=== PATIENT | female | born 1990 | race American Indian/Alaskan Native ===

== ENCOUNTER 2017-10-28 17:02 | Emergency (ER) | payer MEDICAID ==
[2017-10-28] MEDS ORDERED: NACL 0.9% 1000 ML 1,000 ML IV ONE (17:22)
[2017-10-28 18:25] LABS: Bilirubin,Urine NEG (Negative); Blood,Urine NEG (Negative); Color,Urine Yellow (Yellow); Protein,Urine <15 mg/dL mg/dL (Negative); Urobilinogen,Urine < 2.0 mg/dL (<2.0)
[2017-10-28 18:28] LABS: HCG Qualitative,Urine Negative (Negative)
[2017-10-28 18:31] LABS: Eosinophils # (Auto) 0.1 K/mm3 (0.0-0.4); Eosinophils % (Auto) 1.4 % (0.0-4.3); Hematocrit 37.6 % (30.3-42.9); Hemoglobin 12.9 gm/dl (10.1-14.3); Lymphocytes # (Auto) 2.3 K/mm3 (1.2-5.4); Lymphocytes % (Auto) 30.8 % (13.4-35.0); Mean Corpuscular HGB Conc 34 % (30-34); Mean Corpuscular Hemoglobin 32 pg (28-32); Mean Corpuscular Volume 92 fl (79-97); Monocytes # (Auto) 0.4 K/mm3 (0.0-0.8); Monocytes % (Auto) 4.8 % (0.0-7.3); Platelet Count 192 K/mm3 (140-440); Red Blood Count 4.08 M/mm3 (3.65-5.03); Red Cell Distribution Width 13.7 % (13.2-15.2)
[2017-10-28 18:39] LABS: Alanine Aminotransferase 15 units/L (7-56); Albumin 3.6 g/dL (3.9-5); BUN/Creatinine Ratio 20; Blood Urea Nitrogen 12 mg/dL (7-17); Hemolysis Index 5
--- NOTE | 2017-10-28 22:00 | Emergency Department Report ---
ED General Adult HPI - General Chief complaint: Abdominal Pain Stated complaint: BACK/ABD PAIN Time Seen by Provider: 10/28/17 21:12 Source: patient Mode of arrival: Ambulatory Limitations: No Limitations - History of Present Illness Initial comments: Patient presents to the emergency department with a two-week history of right lower quadrant abdominal pain that became worse today. The patient states she has a history of ovarian cysts that were located on the right side but this feels different. Patient denies any nausea, vomiting, diarrhea. Patient has no other complaints. -: Gradual Location: abdomen Radiation: non-radiation Severity scale (0 -10): 5 Quality: sharp Consistency: constant Improves with: none Worsens with: none Associated Symptoms: denies other symptoms Treatments Prior to Arrival: none - Related Data Previous Rx's Medication Instructions Recorded Last Taken Type Ibuprofen [Motrin] 800 mg PO Q8HR PRN #30 tablet 10/28/17 Unknown Rx traMADol [Ultram] 50 mg PO Q6HR PRN #24 tablet 10/28/17 Unknown Rx Allergies Allergy/AdvReac Type Severity Reaction Status Date / Time No Known Allergies Allergy Unverified 12/08/15 19:32 ED Review of Systems ROS: Stated complaint: BACK/ABD PAIN Other details as noted in HPI Comment: All other systems reviewed and negative Constitutional: denies: chills, fever Eyes: denies: eye pain, eye discharge, vision change ENT: denies: ear pain, throat pain Respiratory: denies: cough, shortness of breath, wheezing Cardiovascular: denies: chest pain, palpitations Endocrine: no symptoms reported Gastrointestinal: abdominal pain. denies: nausea, diarrhea Genitourinary: denies: urgency, dysuria, discharge Musculoskeletal: denies: back pain, joint swelling, arthralgia Skin: denies: rash, lesions Neurological: denies: headache, weakness, paresthesias Psychiatric: denies: anxiety, depression Hematological/Lymphatic: denies: easy bleeding, easy bruising ED Past Medical Hx - Past Medical History Hx Hypertension: Yes - Surgical History Additional Surgical History: x2 - Social History Smoking Status: Current Every Day Smoker Substance Use Type: None - Medications Home Medications: Home Medications Medication Instructions Recorded Confirmed Last Taken Type Ibuprofen [Motrin] 800 mg PO Q8HR PRN #30 tablet 10/28/17 Unknown Rx traMADol [Ultram] 50 mg PO Q6HR PRN #24 tablet 10/28/17 Unknown Rx ED Physical Exam - General Limitations: No Limitations General appearance: alert, in no apparent distress - Head Head exam: Present: atraumatic, normocephalic - Eye Eye exam: Present: normal appearance, PERRL, EOMI - ENT ENT exam: Present: mucous membranes moist - Neck Neck exam: Present: normal inspection - Respiratory Respiratory exam: Present: normal lung sounds bilaterally. Absent: respiratory distress, wheezes, rales - Cardiovascular Cardiovascular Exam: Present: regular rate, normal rhythm. Absent: systolic murmur, diastolic murmur, rubs, gallop - GI/Abdominal GI/Abdominal exam: Present: soft, tenderness (tenderness to palpation right lower quadrant), normal bowel sounds. Absent: distended - Rectal Rectal exam: Present: deferred - Extremities Exam Extremities exam: Present: normal inspection - Back Exam Back exam: Present: normal inspection - Neurological Exam Neurological exam: Present: alert, oriented X3, CN II-XII intact, normal gait. Absent: motor sensory deficit - Psychiatric Psychiatric exam: Present: normal affect, normal mood - Skin Skin exam: Present: warm, dry, intact, normal color. Absent: rash ED Course Vital Signs 10/28/17 10/28/17 10/28/17 17:18 21:40 22:37 Temperature 98.7 F 98.6 F Pulse Rate 81 76 Respiratory 16 18 18 Rate Blood Pressure 114/58 Blood Pressure 116/68 [Left] O2 Sat by Pulse 98 100 Oximetry ED Medical Decision Making - Lab Data Result diagrams: 10/28/17 17:50 10/28/17 17:50 - Medical Decision Making Discussed results with patient Critical care attestation.: If time is entered above; I have spent that time in minutes in the direct care of this critically ill patient, excluding procedure time. ED Disposition Clinical Impression: Abdominal pain Disposition: DC-01 TO HOME OR SELFCARE Is pt being admited?: No Does the pt Need Aspirin: No Condition: Fair Instructions: Abdominal Pain (ED) Additional Instructions: Return if worse Prescriptions: Ibuprofen [Motrin] 800 mg PO Q8HR PRN #30 tablet PRN Reason: Pain , Severe (7-10) traMADol [Ultram] 50 mg PO Q6HR PRN #24 tablet PRN Reason: Pain Referrals: PRIMARY CARE,MD [Primary Care Provider] - 3-5 Days Time of Disposition: 23:05
[2017-10-28 22:06] VITALS: BP 116/68
[2017-10-28] MEDS ORDERED: MORPHINE IM ONE (22:09)
[2017-10-28] MEDS ORDERED: ZOFRAN IM ONE (22:09)
--- NOTE | 2017-10-28 22:50 | Cat Scan Report ---
FINAL REPORT EXAM: CT ABDOMEN PELVIS WO CON HISTORY: rlq ab pain TECHNIQUE: Axial helical imaging through the abdomen and pelvis with sagittal and coronal reformatted images obtained. Type comparison: None FINDINGS: Visualization of fine detail is somewhat limited by artifact created by large body habitus and lack of contrast. The lung bases are without infiltrate, pneumothorax or pleural fluid collection. Heart appears to be enlarged. The liver, spleen, pancreas, kidneys and adrenal glands are unremarkable on this study without contrast. The gallbladder is mildly distended and unremarkable in appearance. The bowel is normal caliber. There is a moderate amount of stool in the ascending colon. The appendix is normal caliber. There is no evidence of pneumoperitoneum or free fluid. The abdominal aorta is normal caliber. There is no definite evidence of pathologic intra-abdominal adenopathy on this study without contrast. The urinary bladder is moderately distended and unremarkable in appearance. The uterus and adnexa are unremarkable in appearance. The bony structures are notable for spondylitic change of the lumbar spine. There is a small umbilical hernia that contains fat. IMPRESSION: 1. No evidence of an acute intra-abdominal process. 2. Moderate amount of stool in the ascending colon. 3. Spondylitic change lumbar spine. 4. The heart appears to be enlarged. 5. Small umbilical hernia contains fat.
== END 2017-10-28 23:28 | disposition home or self-care (01) ==
LOC: ED 17:02
DX: R10.31 Right lower quadrant pain (principal); I10 Essential (primary) hypertension; F17.200 Nicotine dependence, unspecified, uncomplicated
CPT/HCPCS: 36415; 74176; 80053; 81001; 81025; 85025; 96372; 99284; J2270; J2405

== ENCOUNTER 2019-02-20 08:39 | Emergency (ER) | payer SELFPAY ==
[2019-02-20 09:27] VITALS: BP 146/57
[2019-02-20 09:27] LABS: Basophils % (Auto) 0.5 % (0.0-1.8); Eosinophils # (Auto) 0.1 K/mm3 (0.0-0.4); Eosinophils % (Auto) 1.3 % (0.0-4.3); Hematocrit 41.5 % (30.3-42.9); Hemoglobin 13.8 gm/dl (10.1-14.3); Lymphocytes # (Auto) 1.7 K/mm3 (1.2-5.4); Mean Corpuscular HGB Conc 33 % (30-34); Mean Corpuscular Volume 93 fl (79-97); Monocytes # (Auto) 0.3 K/mm3 (0.0-0.8); Monocytes % (Auto) 5.1 % (0.0-7.3); Platelet Count 210 K/mm3 (140-440); Red Blood Count 4.48 M/mm3 (3.65-5.03); Red Cell Distribution Width 14.1 % (13.2-15.2)
[2019-02-20 09:44] LABS: Alanine Aminotransferase 23 units/L (7-56); Albumin 3.8 g/dL (3.9-5); BUN/Creatinine Ratio 15; Blood Urea Nitrogen 9 mg/dL (7-17); Calcium 9.6 mg/dL (8.4-10.2); Hemolysis Index 14
--- NOTE | 2019-02-20 09:44 | Emergency Department Report ---
HPI - General Chief Complaint: Abdominal Pain Time Seen by Provider: 02/20/19 09:25 - HPI HPI: 28-year-old female presents to the emergency department with complaint of lower abdominal and right sided pelvic pain after having a fall 2 days ago. She says that she fell directly on that right side. The pain worsens when she is walking or moving around. She also has developed some mild vaginal spotting despite the fact that she had her menstrual cycle and 5 days ago. She has a past medical history of hypertension. She has not taken anything for her symptoms prior to arrival today. ED Past Medical Hx - Past Medical History Previous Medical History?: Yes Hx Hypertension: Yes - Surgical History Past Surgical History?: Yes Additional Surgical History: x2 - Social History Smoking Status: Never Smoker Substance Use Type: Alcohol - Medications Home Medications: Home Medications Medication Instructions Recorded Confirmed Last Taken Type traMADoL [Ultram] 50 mg PO Q6HR PRN #24 tablet 10/28/17 Unknown Rx Ibuprofen [Motrin 800 MG tab] 800 mg PO Q8HR PRN #20 tablet 02/20/19 Unknown Rx ED Review of Systems ROS: Stated complaint: ABD PAIN/SPOTTING BLOOD Other details as noted in HPI Comment: All other systems reviewed and negative Constitutional: denies: chills, fever Gastrointestinal: abdominal pain. denies: vomiting Genitourinary: abnormal menses. denies: dysuria, discharge Musculoskeletal: arthralgia. denies: back pain Neurological: denies: numbness, paresthesias Physical Exam - Physical Exam Vital Signs: Vital Signs 02/20/19 09:17 Temperature 97.6 F Pulse Rate 69 Respiratory 16 Rate Blood Pressure 146/57 O2 Sat by Pulse 99 Oximetry Physical Exam: GENERAL: The patient is well-developed well-nourished. HENT: Normocephalic. Atraumatic. Patient has moist mucous membranes. EYES: Extraocular motions are intact. Pupils equal reactive to light bilaterally. NECK: Supple. Trachea is midline. CHEST/LUNGS: Clear to auscultation. There is no respiratory distress noted. HEART/CARDIOVASCULAR: Regular. There is no tachycardia. There is no murmur. ABDOMEN: Abdomen is soft. There is some reproducible right lower quadrant abdominal and pelvic pain to palpation. No guarding. Patient has normal bowel sounds. There is no abdominal distention. SKIN: Skin is warm and dry. NEURO: The patient is awake, alert, and oriented. The patient is cooperative. The patient has no focal neurologic deficits. Normal speech. MUSCULOSKELETAL: There is no tenderness or deformity. There is no limitation range of motion. There is no evidence of acute injury. ED Course Vital Signs 02/20/19 09:17 Temperature 97.6 F Pulse Rate 69 Respiratory 16 Rate Blood Pressure 146/57 O2 Sat by Pulse 99 Oximetry ED Medical Decision Making - Lab Data Result diagrams: 02/20/19 08:58 02/20/19 08:58 - Radiology Data Radiology results: report reviewed CT OF THE ABDOMEN AND PELVIS WITH INTRAVENOUS CONTRAST INDICATION / CLINICAL INFORMATION: Fall, lower abd and pelvic pain, vaginal bleeding. TECHNIQUE: The patient received 100 cc Omnipaque [address] scans at this location are performed using CT dose reduction for ALARA by means of automated exposure control. COMPARISON: None available. FINDINGS: ABDOMEN: There is a 2 cm low-density lesion in the posterior segment of the right lobe of the liver with probable mild peripheral interrupted contrast enhancement characteristic of a cavernous hemangioma. There is a tiny accessory spleen. The gallbladder, bile ducts, pancreas, adrenal glands, kidneys and bowel are normal. No adenopathy is seen. The lung bases are clear. PELVIS: The distal ureters and urinary bladder are normal. The uterus and adnexal regions are unremarkable. A normal appendix is present and there is no evidence of diverticulitis. No abnormal mass or fluid collection is seen. I do not identify a hernia. There is minimal spondylosis without acute osseous abnormality. IMPRESSION: No acute abnormality. - Medical Decision Making Patient presents to the emergency department with some right lower quadrant abdominal and/or pelvic pain after having a fall 2 days ago. The pain is reproducible to palpation and worsens when she is moving around or ambulating. Labs have been unremarkable including CBC, metabolic panel, urinalysis and the patient is not . A CT scan of the abdomen and pelvis with IV contrast was done that does not show any acute abdominal or pelvic abnormalities. Her vital signs of been stable throughout her ED course. Patient has been instructed to follow-up with primary care and [facility]. She will return to the ER with any worsening of her symptoms or any acute distress. - Differential Diagnosis hip fracture, pelvic fracture, ovarian cyst, colitis Critical Care Time: No Critical care attestation.: If time is entered above; I have spent that time in minutes in the direct care of this critically ill patient, excluding procedure time. ED Disposition Clinical Impression: Pelvic pain Fall Qualifiers: Encounter type: initial encounter Qualified Code(s): W19.XXXA - Unspecified fall, initial encounter Disposition: TO HOME OR SELFCARE Is pt being admited?: No Condition: Stable Instructions: Abdominal Pain (ED), Fall Prevention (ED) Additional Instructions: Please follow-up with a primary care physician and [facility]. Return to the emergency Department with any worsening of your symptoms or any acute distress. Prescriptions: Ibuprofen [Motrin 800 MG tab] 800 mg PO Q8HR PRN #20 tablet PRN Reason: Pain , Severe (7-10) Referrals: [facility] [Provider Group] - 2-3 Days [facility] [Provider Group] - 2-3 Days [facility] [Outside] - 2-3 Days SHANA YBARRA MD [Staff Physician] - 2-3 Days Forms: Work/School Release Form(ED)
[2019-02-20 10:19] LABS: Bilirubin,Urine NEG (Negative); Blood,Urine NEG (Negative); Color,Urine Yellow (Yellow); Mucus,Urine 3+ /HPF; Protein,Urine <15 mg/dL mg/dL (Negative)
--- NOTE | 2019-02-20 11:32 | Cat Scan Report ---
CT OF THE ABDOMEN AND PELVIS WITH INTRAVENOUS CONTRAST INDICATION / CLINICAL INFORMATION: Fall, lower abd and pelvic pain, vaginal bleeding. TECHNIQUE: The patient received 100 cc Omnipaque [address] scans at this location are performed using CT dose reduction for ALARA by means of automated exposure control. COMPARISON: None available. FINDINGS: ABDOMEN: There is a 2 cm low-density lesion in the posterior segment of the right lobe of the liver w ith probable mild peripheral interrupted contrast enhancement characteristic of a cavernous hemangiom a. There is a tiny accessory spleen. The gallbladder, bile ducts, pancreas, adrenal glands, kidneys a nd bowel are normal. No adenopathy is seen. The lung bases are clear. PELVIS: The distal ureters and urinary bladder are normal. The uterus and adnexal regions are unremar kable. A normal appendix is present and there is no evidence of diverticulitis. No abnormal mass or f luid collection is seen. I do not identify a hernia. There is minimal spondylosis without acute osseo us abnormality. IMPRESSION: No acute abnormality. Signer Name: Zuhair Ortiz MD Signed: 02/20/2019 11:28 AM Workstation Name: [id number]
== END 2019-02-20 12:06 | disposition home or self-care (01) ==
LOC: ED 08:39
DX: R10.2 Pelvic and perineal pain (principal); I10 Essential (primary) hypertension; Z79.899 Other long term (current) drug therapy; W19.XXXA Unspecified fall, initial encounter; Y93.89 Activity, other specified; Y92.89 Other specified places as the place of occurrence of the external cause; Y99.8 Other external cause status
CPT/HCPCS: 36415; 74177; 80053; 81001; 84703; 85025; 99284; Q9967

== ENCOUNTER 2019-07-24 10:23 | Emergency (ER) | payer MEDICAID | END 2019-07-24 15:54 | disposition home or self-care (01) | LOC: ED 10:23 | DX: N39.0 Urinary tract infection, site not specified (principal); R10.2 Pelvic and perineal pain; I10 Essential (primary) hypertension; N83.209 Unspecified ovarian cyst, unspecified side; Z98.890 Other specified postprocedural states; Z79.1 Long term (current) use of non-steroidal anti-inflammatories (NSAID); Z79.899 Other long term (current) drug therapy | CPT/HCPCS: 36415; 76830; 76856; 80048; 81001; 81025; 85025; 96365; 96375; 99284; J0696; J2405; J7030 ==